=== PATIENT | male | born 1960 | race Caucasian/White ===

== ENCOUNTER 2024-12-22 11:42 | Day surgery (SDC) | payer OTHER, SELFPAY ==
[2024-12-22 12:06] VITALS: BP 137/79
--- NOTE | 2024-12-22 13:21 | ITS.CL.PACE ---
Maintenance Service Technician - Pacemaker Implant
Pacemaker Implant
Procedure Report:
PACEMAKER IMPLANT REPORT
Primary Care Physician: Dr. Marisol Zelaya
Primary Scallop Dredger: Myself
Date of Procedure: December 22, 2024
Procedure:
1: Dual chamber pacemaker implantation with fluoroscopic guidance
Indication/Diagnosis:
1: Non-reversible symptomatic bradycardia due to: sinus node dysfunction.
History: The patient is a 64-year-old man with a past medical history significant for hypertension, labile blood pressure, psoriatic arthritis, and obstructive sleep apnea on CPAP who presents with fatigue and presyncope. EKG shows profound sinus
bradycardia off all rate controlling drugs at 45 bpm. He is referred for dual-chamber pacemaker placement.
Antibiotic: Ancef 2 g IV
Sedation: Conscious sedation as per anesthesia staff
Description of Procedure: After informed consent was obtained, 'time out' was called and confirmed, the patient was prepped and draped in a sterile fashion. Lidocaine with epinephrine was used for local anesthesia. Central venous access was
obtained via subclavian venopuncture after a venogram from the left arm confirmed subclavian patency. An incision was made along the left chest and a pre-pectoral pocket was formed. Using a Seldinger technique and peel-away sheaths, the pacing
leads were placed under fluoroscopic guidance. Once testing (see below) showed adequate and stable function, the leads were secured using the suture sleeves. The pocket was liberally irrigated with antibiotic solution. The leads were connected to
the generator header and the leads and generator were placed within the pocket. Fluoroscopy confirmed stable lead position. The pocket was closed in the typical fashion.
IMPLANTS:
Company: [employer], SN: [id number] left Pectoral
RA: Biotronik Solia S45, SN: [id number], RAA
RV: Biotronik Solia S53, SN: [id number], RV apical septum
DEVICE TESTING:
Sensing: RA 1.6 mV, RV 10 mV
Capture: RA 1.0 V@0.4ms, RV 0.6 V@0.4ms
Ohms: RA 410, RV 625
FINAL PROGRAMMING
Jorge Pacing: DDD�CLS 60-130ppm
Complications: None.
Fluoroscopy Time (min): 8.2
Radiation Dose (mGy): 38
DAP (Gy.cm2): 5.6
CONCLUSIONS:
1: Successful implant of dual chamber permanent pacemaker
RECOMMENDATIONS:
1. Routine post-op care (tele, CXR).
2. In-Office wound check within 7 days.
3. Office interrogation within 4 weeks.
[2024-12-22 16:26] VITALS: BP 111/68
--- NOTE | 2024-12-22 16:34 | W.DS.TRANS ---
DC Summary - Rotary Driller Prospecting
-
Discharge Instructions:
Discharge Diagnosis/Procedures Pacemaker implant
Diet Low Cholesterol
Driving Restrictions No driving for 1 week
Bathing Restrictions After dressing removed
Instructions:
Stand-Alone Forms: DC Inst - Implanted Device
Changes to Home Medications: No
Discharge Medications:
DC Medications w/original date entered in [employer]
acetaminophen 650 mg tablet,extended release 1,300 mg PO Q12H PRN Arthritis 12/22/24
amlodipine 2.5 mg tablet 2.5 mg PO QPM 12/22/24
cholecalciferol (vitamin D3) 25 mcg (1,000 unit) tablet (Vitamin D3) 25 mcg PO DAILY 12/22/24
escitalopram oxalate 20 mg tablet 20 mg PO DAILY 12/22/24
famotidine 20 mg tablet 20 mg PO QPM 12/22/24
ferrous sulfate 325 mg (65 mg iron) capsule,extended release 65 mg PO DAILY 12/22/24
finasteride 5 mg tablet 5 mg PO QPM 12/22/24
meloxicam 15 mg tablet 15 mg PO DAILY 12/22/24
omeprazole 40 mg capsule,delayed release 40 mg PO DAILY 12/22/24
pregabalin 150 mg capsule 150 mg PO BID 12/22/24
tamsulosin 0.4 mg capsule 0.4 mg PO QPM 12/22/24
topiramate 25 mg tablet 25 mg PO DAILY 12/22/24
upadacitinib 15 mg tablet,extended release 24 hr (Rinvoq) 15 mg PO DAILY 12/22/24
Home Medication Changes
Pending Results: No
[2024-12-22 16:48] VITALS: BP 118/77
--- NOTE | 2024-12-22 17:20 | PTCARENOTE ---
rec'd pt from cleaner laboratory equipment in stable condition - no complaints. VSS L chest wall w DSD ( tegaderm ) with a small dot of blood. No sling per verbal report. advised pt not to raise arm above head or behind back. Family at bedside
[2024-12-22] MEDS: NORVASC 2.5 MG PO (18:06)
[2024-12-22] MEDS: PEPCID 20 MG PO (18:06)
[2024-12-22] MEDS: PROSCAR 5 MG PO (18:07)
[2024-12-22] MEDS: FLOMAX 0.4 MG PO (18:07)
[2024-12-22 19:30] VITALS: BP 124/68
[2024-12-22] MEDS: TYLENOL 650 MG PO (19:42)
[2024-12-22] MEDS: ANCEF 5 IV (19:42)
[2024-12-22] MEDS: LYRICA 150 MG PO (19:42)
[2024-12-22 22:46] VITALS: BP 117/82
--- NOTE | 2024-12-23 03:33 | PTCARENOTE ---
Assumed care on pt at change of shift, aaox3, LCW dressing intact with small blood spot on the center of gauze under Tegaderm, marked for monitoring. Pt reminded on R arm restrictions, Tylenol PRN given for gen discomfort. CXR completed. Apaced on
tele, HR 60's. Call rucker within reach, POC ongoing.
[2024-12-23 04:11] VITALS: BP 120/71
[2024-12-23] MEDS: ANCEF 5 IV (04:22)
[2024-12-23 04:28] VITALS: BMI 29.5
[2024-12-23 05:06] LABS: Hematocrit 33.4 % (39.0-52.0); Hemoglobin 10.7 g/dL (13.0-18.0); Mean Corp Hgb Conc. 32.0 g/dL (33.0-37.0); Mean Corpuscular Volume 97.1 fL (80.0-94.0); Platelet Count 166 10^3/uL (130-400); Red Cell Dist. Width 13.2 % (11.5-14.5)
[2024-12-23 05:30] LABS: Blood Urea Nitrogen 19 mg/dl (9-20); Calcium 8.4 mg/dl (8.4-10.2); Carbon Dioxide 25 mmol/L (22-30); Chloride 110 mmol/L (98-107); Estimated Creatinine Clearance 94 ml/min; Glucose 89 mg/dl (70-99); Magnesium 2.4 mg/dl (1.6-2.3); Potassium 4.0 mmol/L (3.5-5.1); Sodium 137 mmol/L (135-145); eGFR > 60.00
[2024-12-23 05:39] VITALS: BP 124/68
[2024-12-23 06:44] VITALS: BP 132/85
--- NOTE | 2024-12-23 07:49 | W.PN.CARDCBS ---
Addendum entered and electronically signed by Gail Carballo PA-C 12/23/24 12:03:
[id number]
Addendum entered and electronically signed by Shade Nieto MD 12/23/24 10:38:
Patient seen, interviewed and examined by me.
Well-appearing, no acute distress
Incision at the left upper chest is clean and dry.
Regular rate and rhythm with normal S1 and S2, no S3 no S4. There is a grade 1/6 apical holosystolic murmur and no rubs. PMI is normally placed.
Lungs are clear to auscultation bilaterally without wheezes rales or rhonchi.
Abdomen soft nontender nondistended with normoactive bowel sounds
Extremities show trace pretibial edema bilaterally no clubbing or cyanosis.
Neurologic exam is grossly nonfocal.
I reviewed chest x-ray which shows normal expected appearance of the right atrial and right ventricular lead with no pneumothorax.
Reviewed telemetry as well
He remained hemodynamically stable and afebrile.
Overall stable for discharge to home after implantation of Biotronik dual-chamber pacemaker on December 22, 2024.
I reviewed discharge instructions with the patient including activity restrictions and all of his questions have been answered.
Discharge to home today.
Original Note:
Today's Communication / Plan
-
Status post dual-chamber Biotronik pacemaker 12/22
In a paced rhythm on telemetry overnight
Plan for DC to home
Impression / Plan
-
Primary Rock Crushing Machine Operator: Dr. Candelaria
Assessment:
Sick sinus syndrome/symptomatic bradycardia status post Biotronik dual-chamber pacemaker 12/22/2024
Hypertension
History of labile blood pressure
Psoriatic arthritis
DORCAS on CPAP
Anxiety/depression
BPH
GERD
Plan:
-Patient noted to have symptoms of fatigue and presyncope. His EKG showed sinus bradycardia with heart rates in the 40s. He was not on any AV clair blocking agents.
- Status post Biotronik dual-chamber pacemaker 12/22/2024
- Chest x-ray post without evidence of pneumothorax
- A paced rhythm on review of telemetry overnight and EKG dated 12/23
- Left chest site stable appearing. Small amount of dried blood on dressing. Hemoglobin 10.7
- Ambulate
- Activity restrictions reviewed with patient
- Plan for DC to home today
- Wound check next week as well as outpatient follow-up with [facility] [place]
- Discussed with nursing, primary child care leader
Progress Note - Rock Crushing Machine Operator
Subjective
Date of Service: December 23, 2024
No issues overnight. Feeling well
Objective
Labs:
12/23/24 04:20
12/23/24 04:20
Labs
Hgb 10.7 g/dL (13.0-18.0) L 12/23/24 04:20
Hct 33.4 % (39.0-52.0) L 12/23/24 04:20
Plt Count 166 10^3/uL (130-400) 12/23/24 04:20
Sodium 137 mmol/L (135-145) 12/23/24 04:20
Potassium 4.0 mmol/L (3.5-5.1) 12/23/24 04:20
BUN 19 mg/dl (9-20) 12/23/24 04:20
Creatinine 0.8 mg/dL (0.7-1.3) 12/23/24 04:20
Glucose 89 mg/dl (70-99) 12/23/24 04:20
Vital Signs and I&O:
Vital Signs
Temp Pulse Resp BP Pulse Ox
98.4 F 63 18 120/71 97
12/23/24 06:42 12/23/24 05:30 12/23/24 06:42 12/23/24 04:11 12/23/24 06:42
Vital Signs
Temp Pulse Resp BP Pulse Ox
98.4 F 63 18 120/71 97
12/23/24 06:42 12/23/24 05:30 12/23/24 06:42 12/23/24 04:11 12/23/24 06:42
Physical Exam
Physical Exam
GEN: No distress, awake, alert, oriented x3
HEENT: supple, anicteric, mmm, EOMI
LUNGS: CTA bilaterally, no wheezes/rales
CV: Reg, S1/S2, no murmur
ABD: soft, BS+, NT/ND
EXT: No cyanosis, clubbing, edema
NEURO: Gross non-focal
SKIN: Warm, pink, dry. No rash. Left chest dressing with small amount of dried blood noted. No significant edema or tenderness
[2024-12-23] MEDS: PROTONIX 40 MG PO (08:04)
[2024-12-23] MEDS: LYRICA 150 MG PO (08:04)
[2024-12-23] MEDS: MOBIC 15 MG PO (08:04)
[2024-12-23] MEDS: TOPAMAX 25 MG PO (08:05)
[2024-12-23] MEDS: LEXAPRO 20 MG PO (08:05)
== END 2024-12-23 12:19 | disposition home or self-care (01) ==
LOC: CATH 11:42
PROVIDERS: Nurse Practitioner Adult Health; ATTENDING PHYSICIAN Internal Medicine Interventional Cardiology; FAMILY PHYSICIAN Family Medicine
DX: I49.5 Sick sinus syndrome (principal); I10 Essential (primary) hypertension; L40.50 Arthropathic psoriasis, unspecified; G47.33 Obstructive sleep apnea (adult) (pediatric); R55 Syncope and collapse; K21.9 Gastro-esophageal reflux disease without esophagitis; Z79.85 Long-term (current) use of injectable non-insulin antidiabetic drugs; Z79.899 Other long term (current) drug therapy
CPT/HCPCS: 33208; 71045; 80048; 83735; 85027; 93005; C1785; C1898; Q9967